=== PATIENT | female | born 1970 ===

== ENCOUNTER 2020-02-06 13:15 | Emergency (ER) | payer SELFPAY ==
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
[2020-02-06] MEDS ORDERED: Acetaminophen/Codeine 30-300mg Tablet ONE (14:20)
== END 2020-02-06 15:11 | disposition home or self-care (01) ==
LOC: ERS 13:15
DX: S42.022A Displaced fracture of shaft of left clavicle, initial encounter for closed fracture (principal); S22.42XA Multiple fractures of ribs, left side, initial encounter for closed fracture; F41.9 Anxiety disorder, unspecified; F17.210 Nicotine dependence, cigarettes, uncomplicated; V89.2XXA Person injured in unspecified motor-vehicle accident, traffic, initial encounter
CPT/HCPCS: G0390